=== PATIENT | female | born 1990 ===

== ENCOUNTER 2021-08-25 16:18 | Outpatient (CLI) | payer OTHER ==
[2021-08-25] MEDS ORDERED: PRENATAL CAPLE1 EAC1 (16:54)
[2021-08-25] MEDS ORDERED: KEFLEX PO (16:57)
== END 2021-08-26 09:40 | disposition home or self-care (01) ==
LOC: OBS/DEL 16:18
PROVIDERS: ATTEND Obstetrics & Gynecology
DX: O99.891 Other specified diseases and conditions complicating pregnancy (principal); M62.830 Muscle spasm of back; Z3A.29 29 weeks gestation of pregnancy

== ENCOUNTER 2021-09-01 01:07 | Inpatient (IN) | payer OTHER ==
[~2021-09-01] VITALS: Ht 157.5 cm; Wt 1.4 kg
[~2021-09-01 01:07] MED LIST: KEFLEX PO; PRENATAL CAPLE1 EAC1
== END 2021-09-03 19:20 | disposition home or self-care (01) | DRG 807 ==
LOC: OBS/DEL 01:07 → LDR 11:10 → OB/GYN 11:10 → LDR 09-02 02:50 → OB/GYN 09-02 05:41
PROVIDERS: ADMIT Obstetrics & Gynecology; ATTEND Obstetrics & Gynecology
PROC: 4A1HXCZ Monitoring of Products of Conception, Cardiac Rate, External Approach (ICD-10-PCS; 2021-09-01)
PROC: 10E0XZZ Delivery of Products of Conception, External Approach (ICD-10-PCS; principal; 2021-09-02)
DX: O60.14X0 Preterm labor third trimester with preterm delivery third trimester, not applicable or unspecified (principal); Z37.0 Single live birth; Z3A.30 30 weeks gestation of pregnancy; Z20.822 Contact with and (suspected) exposure to COVID-19